=== PATIENT | female | born 1975 ===

== ENCOUNTER 2020-06-03 08:25 | Day surgery (SDC) | payer OTHER ==
[2020-06-03] MEDS ORDERED: PERCOCET 5-3251 EACH PO (11:54)
[2020-06-03] MEDS ORDERED: NEURONTIN300 MG PO (11:55)
[2020-06-03] MEDS ORDERED: RECTICARE30 GM TOP (11:55)
== END 2020-06-03 17:00 | disposition home or self-care (01) ==
LOC: CIR.AMB 08:25
PROVIDERS: ATTEND Surgery
DX: K60.3 Anal fistula (principal); Z20.828 Contact with and (suspected) exposure to other viral communicable diseases